=== PATIENT | female | born 1990 | race Caucasian/White ===

== ENCOUNTER 2023-06-10 05:20 | Inpatient (IN) | payer OTHER ==
[2023-06-10] MEDS ORDERED: ELECTROLYTE-148 SOLN 1,000 ML IV SCH (06:15)
[2023-06-10] MEDS ORDERED: NIFEdipine 10 MG CAPSULE (FP) ONE (06:16)
[2023-06-10] MEDS ORDERED: MAGNESIUM 4GM/H20 - 4 GM/100 ML IVPB IVPB ONE ×2 (06:22→06:46)
[2023-06-10] MEDS ORDERED: NIFEdipine 10 MG CAPSULE (FP) PO ONE (06:46)
[2023-06-10 06:58] LABS: BASO % 0.8 % (0-2.0); HEMATOCRIT 29.7 % (32.4-45.2); HEMOGLOBIN 9.5 GM/dL (10.7-15.3); LYMPH % 20.9 % (8-40); MCH 27.3 pg (25.7-33.7); MCHC 32.1 g/dl (32.0-36.0); MEAN CELL VOLUME 85.1 fl (80-96); MEAN PLT VOLUME 9.9 fl (7.5-11.1); MONO % 5.8 % (3.8-10.2); NEUT % 70.5 % (42.8-82.8); PLATELET COUNT 217 10^3/uL (134-434); RBC 3.49 M/mm3 (3.60-5.2); RDW 14.9 % (11.6-15.6); WHITE BLOOD COUNT 8.5 K/mm3 (4.0-10.0)
[2023-06-10 07:04] VITALS: BMI 31.7
[2023-06-10 07:09] LABS: INR 0.95 (0.83-1.09)
[2023-06-10 07:11] LABS: ACTIVATED PTT 23.6 SECONDS (25.2-36.5)
[2023-06-10] MEDS ORDERED: MAGNESIUM SULFATE 20GM/500ML - 20 GM/500 ML INFUS.BAG ONE ×2 (07:13→16:23)
[2023-06-10] MEDS: MAGNESIUM SULFATE 20GM/500ML - 20 GM/500 ML INFUS.BAG IVPB SCH ×2 (07:15→16:25)
[2023-06-10 07:53] LABS: POTASSIUM 4.1 mmol/L (3.5-5.1)
[2023-06-10 07:55] LABS: BLOOD UREA NITROGEN 10.3 mg/dL (7-18); CALCIUM 8.3 mg/dL (8.5-10.1)
[2023-06-10 07:56] LABS: ALBUMIN 2.3 g/dl (3.4-5.0)
[2023-06-10 07:58] LABS: URIC ACID 5.1 mg/dL (2.6-7.2)
[2023-06-10 07:59] LABS: CREATININE 0.6 mg/dL (0.55-1.3)
[2023-06-10 08:00] LABS: BILIRUBIN,TOTAL 0.4 mg/dL (0.2-1); TOT PROT 5.7 g/dl (6.4-8.2)
[2023-06-10 09:24] LABS: MAGNESIUM 1.9 mg/dL (1.8-2.4)
[2023-06-10 09:38] LABS: CREATININE, URINE RANDOM < 13.0 mg/dL (30-150)
[2023-06-10] MEDS ORDERED: ACETAMINOPHEN 500 MG TABLET (FP) ONE (10:14)
[2023-06-10] MEDS ORDERED: ACETAMINOPHEN 500 MG TABLET (FP) PO ONE (10:15)
[2023-06-10] MEDS ORDERED: BUTORPHANOL TARTRATE 2 MG/ML VIAL IVPB ONE (10:38)
[2023-06-10] MEDS ORDERED: PROMETHAZINE HCL 25 MG/1 ML VIAL IVPB ONE (10:38)
[2023-06-10] MEDS ORDERED: LACTATED RINGERS SOLUTION 1,000 ML/1,000 ML INFUS.BAG IV SCH (10:45)
[2023-06-10] MEDS: LABETALOL HCL 200 MG TABLET (FP) PO SCH ×2 (10:54→21:57)
[2023-06-10] MEDS: MISOPROSTOL 25 MCG TABLET (COMPOUNDED BY PHARMACY) PO SCH ×3 (11:20→22:37)
[2023-06-10] MEDS ORDERED: MISOPROSTOL 25 MCG TABLET (COMPOUNDED BY PHARMACY) PO SCH (12:00)
[2023-06-10] MEDS ORDERED: ACETAMINOPHEN 325 MG TABLET (FP) ONE ×2 (19:13→23:39)
[2023-06-10] MEDS: ACETAMINOPHEN 325 MG TABLET (FP) PO PRN (19:20)
[2023-06-10] MEDS: ELECTROLYTE-148 SOLN 1,000 ML IV SCH (19:39)
[2023-06-10] MEDS ORDERED: AMPICILLIN SODIUM 2 GM VIAL ONE (19:43)
[2023-06-10 19:44] LABS: MAGNESIUM 5.8 mg/dL (1.8-2.4)
[2023-06-10] MEDS ORDERED: AMPICILLIN - 2 GM in SODIUM CHLORIDE 100 ML IVPB ONE (20:00)
[2023-06-10] MEDS ORDERED: DINOPROSTONE 10 MG VAGINAL SUPPOSITORY VG ONE (20:00)
[2023-06-10] MEDS ORDERED: LABETALOL HCL 200 MG TABLET (FP) ONE (21:44)
[2023-06-11] MEDS ORDERED: AMPICILLIN SODIUM 1 GM VIAL ONE ×2 (00:11→03:53)
[2023-06-11] MEDS: AMPICILLIN - 1 GM in SODIUM CHLORIDE 100 ML IVPB SCH ×2 (00:12→04:00)
[2023-06-11] MEDS ORDERED: MAGNESIUM SULFATE 20GM/500ML - 20 GM/500 ML INFUS.BAG ONE ×2 (01:29→12:34)
[2023-06-11] MEDS: MAGNESIUM SULFATE 20GM/500ML - 20 GM/500 ML INFUS.BAG IVPB SCH ×2 (01:30→11:00)
[2023-06-11] MEDS: ELECTROLYTE-148 SOLN 1,000 ML IV SCH ×2 (01:30→07:11)
[2023-06-11] MEDS ORDERED: BUTORPHANOL TARTRATE 2 MG/ML VIAL ONE (03:11)
[2023-06-11] MEDS ORDERED: ACETAMINOPHEN 325 MG TABLET (FP) ONE ×2 (03:12→21:30)
[2023-06-11] MEDS ORDERED: NIFEdipine 10 MG CAPSULE (FP) ONE (03:12)
[2023-06-11] MEDS ORDERED: PROMETHAZINE HCL 25 MG/1 ML VIAL ONE (03:12)
[2023-06-11] MEDS: ACETAMINOPHEN 325 MG TABLET (FP) PO PRN ×2 (03:25)
[2023-06-11] MEDS ORDERED: NIFEdipine 10 MG CAPSULE (FP) PO ONE (03:45)
[2023-06-11] MEDS ORDERED: OXYTOCIN 20 UNITS in 0.9% NS 20 UNIT/1,000 ML INFUS.BAG IV ONE ×2 (07:36→10:59)
[2023-06-11] MEDS: OXYTOCIN 20 UNITS in 0.9% NS 20 UNIT/1,000 ML INFUS.BAG IV SCH ×2 (07:43→21:20)
[2023-06-11] MEDS ORDERED: BISACODYL 10 MG SUPP.RECT RC PRN (07:51)
[2023-06-11] MEDS ORDERED: IBUPROFEN 600 MG TABLET (FP) PO PRN (07:51)
[2023-06-11] MEDS ORDERED: WITCH HAZEL 50% (TUCKS) 40 PAD/JAR PAD TP PRN (07:51)
[2023-06-11] MEDS ORDERED: oxyCODONE HCL 5 MG TABLET PO PRN (07:51)
[2023-06-11] MEDS ORDERED: BENZOCAINE 20% 57 GM BOTTLE TP PRN (07:51)
[2023-06-11] MEDS ORDERED: BENZOCAINE 28 GM HEMORRHOIDAL OINTMENT TP PRN (07:51)
[2023-06-11] MEDS ORDERED: METHYLERGONOVINE MALEATE 0.2 MG/1 ML AMP IM PRN (07:51)
[2023-06-11] MEDS ORDERED: ACETAMINOPHEN 325 MG TABLET (FP) PO PRN (07:51)
[2023-06-11] MEDS: MISOPROSTOL 25 MCG TABLET (COMPOUNDED BY PHARMACY) PO SCH ×2 (08:00→12:00)
[2023-06-11] MEDS ORDERED: NIFEdipine E.R. 30 MG TABLET PO ONE ×3 (09:49→13:15)
[2023-06-11] MEDS: NIFEdipine E.R. 30 MG TABLET PO SCH (09:51)
[2023-06-11] MEDS: PRENATAL VITAMINS W/ FOLIC ACID TABLET (FP) PO SCH (10:00)
[2023-06-11] MEDS: FERROUS SO4 325 MG TABLET (FP) PO SCH (10:00)
[2023-06-11] MEDS ORDERED: LABETALOL HCL 200 MG TABLET (FP) ONE ×2 (11:40→21:30)
[2023-06-11] MEDS: LABETALOL HCL 200 MG TABLET (FP) PO SCH ×2 (11:45→21:35)
[2023-06-11 12:38] LABS: COCAINE, UR NEGATIVE (NEGATIVE); OPIATES, URI NEGATIVE (NEGATIVE); PHENCYCLIDINE,URINE NEGATIVE (NEGATIVE); URINE BARBITURATES NEGATIVE (NEGATIVE)
[2023-06-11 12:39] LABS: METHADONE, UR NEGATIVE (NEGATIVE)
[2023-06-11 12:40] LABS: URINE AMPHETAMINES NEGATIVE (NEGATIVE); URINE BENZODIAZEPINES NEGATIVE (NEGATIVE)
[2023-06-11] MEDS ORDERED: MAGNESIUM SULFATE 20GM/500ML - 20 GM/500 ML INFUS.BAG IVPB ONE (13:45)
[2023-06-12 08:40] LABS: BASO % 0.6 % (0-2.0); EOS % 2.6 % (0-4.5); HEMATOCRIT 30.2 % (32.4-45.2); HEMOGLOBIN 9.6 GM/dL (10.7-15.3); LYMPH % 24.3 % (8-40); MCH 27.4 pg (25.7-33.7); MCHC 31.9 g/dl (32.0-36.0); MEAN CELL VOLUME 85.9 fl (80-96); MEAN PLT VOLUME 9.2 fl (7.5-11.1); MONO % 4.5 % (3.8-10.2); PLATELET COUNT 232 10^3/uL (134-434); RBC 3.51 M/mm3 (3.60-5.2); RDW 15.5 % (11.6-15.6); WHITE BLOOD COUNT 8.4 K/mm3 (4.0-10.0)
[2023-06-12] MEDS: FERROUS SO4 325 MG TABLET (FP) PO SCH (09:33)
[2023-06-12] MEDS: PRENATAL VITAMINS W/ FOLIC ACID TABLET (FP) PO SCH (09:33)
[2023-06-12] MEDS: NIFEdipine E.R. 30 MG TABLET PO SCH (09:33)
[2023-06-12] MEDS: LABETALOL HCL 200 MG TABLET (FP) PO SCH ×2 (09:33→21:40)
[2023-06-12] MEDS ORDERED: SENNOSIDES/DOCUSATE COMBO (SENNA PLUS) TABLET (UD) PO PRN (22:00)
[2023-06-13] MEDS: NIFEdipine E.R. 30 MG TABLET PO SCH (10:04)
[2023-06-13] MEDS: LABETALOL HCL 200 MG TABLET (FP) PO SCH (10:04)
[2023-06-13] MEDS: PRENATAL VITAMINS W/ FOLIC ACID TABLET (FP) PO SCH (10:04)
[2023-06-13] MEDS: FERROUS SO4 325 MG TABLET (FP) PO SCH (10:04)
[2023-06-13 10:06] VITALS: RESP 18; TEMP 98.2
[2023-06-13] MEDS ORDERED: NIFEdipine 10 MG CAPSULE (FP) PO ONE (11:30)
[2023-06-13 12:07] VITALS: BP 107/69; PULSE 109
== END 2023-06-13 14:15 | disposition home or self-care (01) | DRG 560 ==
LOC: JDEL 05:20 → JLDR 05:55 → J3W 06-11 11:50 → JLDR 06-11 14:48 → J3W 06-11 23:11
PROVIDERS: ADMIT Obstetrics & Gynecology; ATTEND Obstetrics & Gynecology
PROC: 3E0P7VZ Introduction of Hormone into Female Reproductive, Via Natural or Artificial Opening (ICD-10-PCS; 2023-06-10)
PROC: 10E0XZZ Delivery of Products of Conception, External Approach (ICD-10-PCS; principal; 2023-06-11)
DX: O14.14 Severe pre-eclampsia complicating childbirth (principal); O99.820 Streptococcus B carrier state complicating pregnancy; Z3A.38 38 weeks gestation of pregnancy; Z37.0 Single live birth
CPT/HCPCS: 36415; 80053; 80307; 82570; 82977; 83010; 83735; 84156; 84550; 85025; 85045; 85610; 85730; 86780; 86850; 86900; 86901; 87389